=== PATIENT | female | born 1985 | race Caucasian/White ===

== ENCOUNTER → 2019-05-01 14:18 | Outpatient (CLI) | payer OTHER, SELFPAY ==
[2019-05-01 16:27] LABS: Urine N gonorrhoeae NOT DETECTED
[2019-05-01 16:31] LABS: Urine Chlamydia NOT DETECTED
== END ==
PROVIDERS: Visit Provider Physician Assistant
DX: R10.9 Unspecified abdominal pain (principal); R30.0 Dysuria
CPT/HCPCS: 87077; 87086; 87186; 87210; 87491; 87591

== ENCOUNTER → 2022-02-16 07:26 | Outpatient (CLI) | payer OTHER, SELFPAY ==
[2022-02-18 23:27] LABS: Urine N gonorrhoeae NOT DETECTED
[2022-02-18 23:36] LABS: Urine Chlamydia NOT DETECTED
== END ==
PROVIDERS: Visit Provider Registered Nurse
DX: N89.8 Other specified noninflammatory disorders of vagina (principal); R39.89 Other symptoms and signs involving the genitourinary system
CPT/HCPCS: 87210; 87491; 87591

== ENCOUNTER → 2022-09-13 08:21 | Outpatient (CLI) | payer OTHER, SELFPAY | PROVIDERS: Visit Provider Nurse Practitioner Family | DX: R30.0 Dysuria (principal) | CPT/HCPCS: 87077; 87086; 87186; 87210 ==